=== PATIENT | male | born 1985 | race African-American/Black ===

== ENCOUNTER 2021-10-31 19:52 | Emergency (ER) | payer OTHER ==
[~2021-10-31] VITALS: Ht 175.3 cm; Wt 163.3 kg
== END 2021-10-31 21:18 | disposition home or self-care (01) ==
LOC: ER 19:52
DX: U07.1 COVID-19 (principal); B34.9 Viral infection, unspecified; R51.9 Headache, unspecified; R06.02 Shortness of breath